=== PATIENT | female | born 1985 | race Caucasian/White ===

== ENCOUNTER 2021-09-01 08:27 | Inpatient (IN) | payer BC ==
[~2021-09-01 08:27] MED LIST: Bupivacaine 0.25% HCL 30 ML VIAL ONE
[2021-09-01 09:44] VITALS: BMI 30.7
[2021-09-01 10:42] LABS: Fetal Membranes Rupture No Membranes Rupture (No Rupture)
[2021-09-01] MEDS ORDERED: Lidocaine 1% (PF) 30 ML VIAL SC PRN (11:01)
[2021-09-01] MEDS ORDERED: hydrALAZINE 20 MG/ML VIAL SLOW IVP PRN (11:01)
[2021-09-01] MEDS ORDERED: HYDROcodone/Acetaminophen 5/325 mg Tablet PO PRN (11:01)
[2021-09-01] MEDS ORDERED: Ibuprofen 800 MG TAB PO PRN (11:01)
[2021-09-01] MEDS ORDERED: Ondansetron PF 4 MG/2 ML Vial IVP PRN ×2 (11:01→21:26)
[2021-09-01] MEDS ORDERED: Promethazine HCl 25 MG/ML VIAL IM PRN ×2 (11:01→21:26)
[2021-09-01] MEDS ORDERED: Butorphanol Tartrate 1 MG/ML VIAL SLOW IVP PRN (11:01)
[2021-09-01] MEDS ORDERED: NS w/ Oxytocin 30 units 500 ML IV SCH ×2 (11:15)
[2021-09-01] MEDS ORDERED: Lactated Ringer's 1,000 ML IV SCH ×2 (11:15)
[2021-09-01 11:55] LABS: Hemoglobin 11.7 g/dL (12.0-15.5); Mean Corpuscular HGB CONC 32.5 g/dL (32.0-36.0); Mean Corpuscular Hemoglobin 30.2 pg (27.0-33.0); Mean Platelet Volume 12.2 fl (7.4-10.4); Platelet Count 273 10x3/uL (150-450); RBC Distribution Width 13.2 % (11.5-14.5); Red Blood Cell (RBC) Count 3.87 10x6/uL (3.90-5.03); White Blood Cell (WBC) Count 12.5 10x3/uL (3.5-10.5)
[2021-09-01 12:35] LABS: Hep B Surf Ag Non-Reactive S/CO (NonReactive); Syphilis Antibody Nonreactive (Nonreactive); Syphilis Antibody Index 0.07 S/CO (<1.00 Non-Reactive)
[2021-09-01 13:02] LABS: SARS-CoV-2 NAA Rapid Test Not Detected (NotDetected)
[2021-09-01 13:05] LABS: HBSAg Index 0.01 S/CO (0-0.99)
[2021-09-01] MEDS ORDERED: Fentanyl 2 mcg/Bup 0.1% Cadd 100 ML ONE (20:18)
[2021-09-01] MEDS ORDERED: ePHEDrine Sulfate 50 MG/10 ML VIAL SLOW IVP PRN (21:26)
[2021-09-01] MEDS ORDERED: Hydrocerin (Eucerin) Cream 120 gm Jar TOP PRN (21:26)
[2021-09-01] MEDS ORDERED: Naloxone HCl 0.4 mg/ml Vial IVP PRN ×2 (21:26)
[2021-09-01] MEDS ORDERED: Acetaminophen 325 MG TAB PO PRN (21:26)
[2021-09-01] MEDS ORDERED: diphenhydrAMINE 50 MG/ML VIAL IVP PRN (21:26)
[2021-09-01] MEDS ORDERED: Communication Order-Pharmacy FS SCH (21:30)
[2021-09-01] MEDS ORDERED: Fentanyl 2 mcg/Bupivacaine 0.1% Cassette 100 ML EPIDURAL SCH (21:30)
[2021-09-01] MEDS ORDERED: Lactated Ringer's 500 ML IV PRN (22:12)
[2021-09-01] MEDS ORDERED: Dexmedetomidine 200 MCG/2 ML VIAL ONE (22:51)
[2021-09-01] MEDS ORDERED: Fentanyl 100 MCG/2 ML VIAL ONE (22:59)
[2021-09-02] MEDS ORDERED: Milk Of Magnesia 30 ML UDCUP PO PRN (01:16)
[2021-09-02] MEDS ORDERED: Boostrix 0.5 ML (Tdap) VIAL IM ONE (01:16)
[2021-09-02] MEDS ORDERED: Benzocaine-Menthol 82.5 ML CAN TOP PRN (01:16)
[2021-09-02] MEDS ORDERED: Lanolin Ointment 7 GM TUBE TOP PRN (01:16)
[2021-09-02] MEDS ORDERED: diphenhydrAMINE 25 MG CAP PO PRN (01:16)
[2021-09-02] MEDS ORDERED: Preparation H Ointment 28 GM TUBE PR PRN (01:16)
[2021-09-02] MEDS ORDERED: hydrALAZINE 20 MG/ML VIAL SLOW IVP PRN (01:16)
[2021-09-02] MEDS ORDERED: Bisacodyl 10 MG SUPP PR PRN (01:16)
[2021-09-02] MEDS ORDERED: Phytonadione Neonatal 1 MG/0.5 ML AMP ONE (01:32)
[2021-09-02] MEDS ORDERED: Erythromycin Base 0.5% Oint 1 GM TUBE ONE (01:32)
[2021-09-02] MEDS ORDERED: Hepatitis B Vaccine 10 MCG/0.5 ML SYR ONE (02:07)
[2021-09-02] MEDS ORDERED: traMADol HCl 50 MG TAB PO PRN ×2 (05:31)
[2021-09-02] MEDS: Ferrous Sulfate 325 MG TAB PO SCH ×2 (07:33→14:38)
[2021-09-02] MEDS: Prenatal Vitamin 1 TAB PO SCH (08:18)
[2021-09-02] MEDS: Ibuprofen 800 MG TAB PO SCH ×3 (08:18→22:04)
[2021-09-02] MEDS: Docusate 100 MG CAP PO SCH ×2 (08:18→22:04)
[2021-09-03] MEDS: Ibuprofen 800 MG TAB PO SCH (05:18)
[2021-09-03] MEDS: Ferrous Sulfate 325 MG TAB PO SCH (08:17)
[2021-09-03] MEDS: Docusate 100 MG CAP PO SCH (08:56)
[2021-09-03] MEDS: Prenatal Vitamin 1 TAB PO SCH (08:56)
[2021-09-03 11:36] VITALS: BP 127/63; TEMP 98.7
== END 2021-09-03 13:10 | disposition home or self-care (01) | DRG 807 ==
LOC: CSHLD/OP 08:27 → CSHLD 13:51 → CSHPP 09-02 05:00
PROVIDERS: ADMIT Obstetrics & Gynecology; ATTEND Obstetrics & Gynecology
PROC: 10E0XZZ Delivery of Products of Conception, External Approach (ICD-10-PCS; principal; 2021-09-02)
PROC: 0HQ9XZZ Repair Perineum Skin, External Approach (ICD-10-PCS; 2021-09-02)
PROC: 3E0334Z Introduction of Serum, Toxoid and Vaccine into Peripheral Vein, Percutaneous Approach (ICD-10-PCS; 2021-09-02)
DX: O26.893 Other specified pregnancy related conditions, third trimester (principal); Z37.0 Single live birth; Z67.11 Type A blood, Rh negative; Z3A.38 38 weeks gestation of pregnancy; O70.0 First degree perineal laceration during delivery; Z20.822 Contact with and (suspected) exposure to COVID-19
CPT/HCPCS: 51702; 84112; 85027; 85461; 86780; 86850; 86900; 86901; 87340; 90384; 96372; J2590; J3010; S0020; U0002